=== PATIENT | male | born 1945 | race Caucasian/White ===

== ENCOUNTER 2016-06-25 18:10 | Emergency (ER) | payer OTHER, MEDICARE ==
[~2016-06-25] VITALS: Ht 180.3 cm; Wt 72.6 kg
[~2016-06-25 18:10] MED LIST: NOHOMEMEDICATIONS
[2016-06-25 19:11] LABS: HEMOGLOBIN 13.1 gm/dL (14.0-18.0); MCH 30.4 pg (26.0-34.0); MCHC 34.5 g/dL (28.0-37.0); MCV 88.1 fL (80.0-100.0); PLATELET COUNT 158 thou/uL (150-400); RBC 4.31 mil/uL (4.50-6.00); WBC 5.8 thou/uL (4.0-11.0)
[2016-06-25 19:14] LABS: MANUAL DIFF YES
[2016-06-25 19:20] LABS: CALCIUM 8.4 mg/dL (8.5-10.1); CREATININE 0.9 mg/dL (0.6-1.3); POTASSIUM 3.2 mmol/L (3.5-5.1)
[2016-06-25 19:25] LABS: TOTAL BILIRUBIN 0.9 mg/dL (<0.1-1.0); TOTAL PROTEIN 6.4 g/dL (6.4-8.2)
[2016-06-25 20:58] LABS: ABSOLUTE NEUTROPHILS 4.6 thou/uL (1.4-8.2); ATYPICAL LYMPHS 1 %; TOTAL CELL COUNT 100
[2016-06-25 20:59] LABS: ANISOCYTOSIS 1+
[2016-06-25] MEDS ORDERED: BENTYL 20 MG TA20 M1 PO (21:00)
[2016-06-25] MEDS ORDERED: ONDANSETRON HCL4 M2 PO (21:00)
[2016-06-25 21:13] VITALS: BP 160/91
== END 2016-06-25 21:13 | disposition home or self-care (01) ==
LOC: ER 18:10
PROVIDERS: Emergency Medicine
DX: R19.7 Diarrhea, unspecified (principal)

== ENCOUNTER → 2016-07-10 | Outpatient (CLI) | payer OTHER, MEDICARE ==
[~2016-07-10] VITALS: Ht 172.7 cm; Wt 74.8 kg
[~2016-07-10] MED LIST changes: +BENTYL 20 MG TA20 M1 PO; +CENTRUM SILVER1 EAC2 PO; +FISH OIL 1,001000 M2 PO; +ONDANSETRON HCL4 M2 PO; +PANTOPRAZOLE SO40 M1 PO
--- NOTE | ~2016-07-10 | P ---
[facility] [place] [address] PROCEDURE REPORT Name: LESLIREYNALDO Barry Room #: [facility] [id number] Admission: 07/10/16 Attend Phys: Barry Royal MD Discharge: Date of : 43 Report #: [id number] THIS REPORT FOR: //name// CC: BARRY Royal BRIEF HISTORY: The patient is a 70-year-old male who recently underwent GI evaluation for anemia. He was found to have a long segment of Stubbs mucosa. Dysplasia was not described in the biopsies. His segment of Stubbs was measured at 9 cm. He has been on proton pump inhibitor and he reports he has no indigestion symptoms at this time. He presents for surveillance biopsies of his Stubbs's and confirmatory biopsies after initial diagnosis. PREOPERATIVE DIAGNOSIS: Long segment Stubbs esophagus. POSTOPERATIVE DIAGNOSES: 1. Long segment Stubbs esophagus. 2. Large hiatus hernia. MEDICATIONS: Deep sedation per anesthesia. SPECIMEN: Multiple biopsies of Stubbs mucosa at 36, 34, 32, 30 and 28 cm. ESTIMATED BLOOD LOSS: 3 mL. PROCEDURE: EGD with biopsy. FINDINGS: Prior to propofol sedation, the procedure of upper endoscopy was reviewed with the patient as well as potential risks, benefits and complications. He indicates he understands and desires to proceed. DESCRIPTION OF PROCEDURE: With the patient in the left lateral decubitus position, the Fuji and endoscope was inserted in the cervical esophagus under direct vision without difficulty. Examination of this organ through its entire length revealed normal esophageal mucosa in the very proximal esophagus. However, the scope was advanced. The squamocolumnar junction was identified at 26 cm. It was irregular in its course, but there is no evidence of peptic esophagitis, strictures or masses. Distal to this line was typical appearing bland and flat Stubbs mucosa. No ulcers, erosions, strictures, or masses were raised lesions were seen. An occasional tiny squamous island was seen in the Stubbs's. The scope was further advanced into the moderately large hiatus hernia. The mucosa in the hernia was within normal limits. Scope was advanced in the stomach, which was examined on end view as well as retroflexed views. The mucosa was intact. No ulcers or erosions were seen. Upon retroflexion, the hiatus hernia was seen. The pylorus was normal. Duodenal bulb and postbulbar sweep were inspected and noted to be unremarkable. At that point, the scope was [facility] [address] [place] [address] PROCEDURE REPORT Name: REYNALDO BALLESTEROS Room #: REG [facility] [id number] Admission: 07/10/16 Attend Phys: Barry Royal MD Discharge: Date of : 43 Report #: [id number] slowly withdrawn and careful circumferential views obtained. Multiple random biopsies obtained of Stubbs mucosa at the levels as noted above. He tolerated the procedure well. CONDITION OF THE PATIENT UPON DISCHARGE: Following procedure, the patient drowsy, aroused, conversant and will be discharged home when fully ambulatory. INSTRUCTIONS TO THE PATIENT AND FAMILY AT THE TIME OF DISCHARGE: Long segment Stubbs esophagus. The mucosa is homogeneous, flat and without ulcers or raised lesions. We will follow up on biopsies and make further recommendations. He is to continue PPI on long-term basis. Certainly, if he does have dysplasia, we would consider radiofrequency ablation with longstanding of Stubbs mucosa. If he does not have dysplasia, we can have a discussion with the patient regarding long-term management. Ablation may be a consideration to a long segment; however, benefits were not as clear for a 70-year-old male for ablation. Again, we will make further recommendations after review of biopsies. <ELECTRONICALLY SIGNED> By: Barry Royal MD 07/11/16 1809 [id number] [id number] Barry Royal MD /nt
--- NOTE | ~2016-07-10 | S ---
[facility] [address] [place] [address] SURGICAL PATH RPT PROCEDURE Name: REYNALDO BALLESTEROS Room #: REG ABRAHAM Pearson#: [id number] Admission: 07/10/16 Date of : 43 Discharge: Report #: [id number] Path Case #: [id number] PATHOLOGY REPORT DRAFT COLLECTION DATE: 07/10/2016 RECEIVED DATE: 07/11/2016 SPECIMEN(S) RECEIVED: A.Biopsy esophagus 36 cm B.Biopsy esophagus 34 cm C.Biopsy esophagus 32 cm D.Biopsy esophagus 30 cm E.Biopsy esophagus 28 cm
== END ==
LOC: GI 08:56
DX: K22.70 Barrett's esophagus without dysplasia (principal); K44.9 Diaphragmatic hernia without obstruction or gangrene; K21.9 Gastro-esophageal reflux disease without esophagitis
CPT/HCPCS: 62110; 62900

== ENCOUNTER → 2019-10-14 | Outpatient (CLI) | payer OTHER, MEDICARE ==
[~2019-10-14] VITALS: Ht 172.7 cm; Wt 79.4 kg
[~2019-10-14] MED LIST changes: +COZAAR 50 MG TA50 M1 PO; +OSTEO BI-FLEX1 EAC1 PO; +TOPROL XL100 MG PO
--- NOTE | 2019-10-14 13:37 | P ---
[facility] [place] [address] PROCEDURE REPORT Name: REYNALDO BALLESTEROS Room #: REG Lien AlexManoloLesiaManolo#: [id number] Admission: 10/14/19 Attend Phys: Adán Royal MD Discharge: Date of : 43 Report #: [id number] THIS REPORT FOR: cc: Adán Johnson MD, John M. MD Thesing,Adán Leon MD ~ CC: Adán Royal BRIEF HISTORY: The patient is a 73-year-old male with a known long segment Stubbs mucosa, who has previously not had dysplasia, for surveillance examination. His reflux symptoms are well controlled with omeprazole 40 mg daily. PREOPERATIVE DIAGNOSIS: Long segment Stubbs esophagus. POSTOPERATIVE DIAGNOSES: 1. Stubbs esophagus. 2. A 5 cm sliding type hiatus hernia. 3. Pedunculated polyp prepyloric antrum. MEDICATIONS: Deep sedation with propofol per Anesthesia. SPECIMENS: 1. Antral polyp. 2. Random biopsies of Stubbs esophagus, 35 cm. 3. Random biopsies of Stubbs esophagus, 33 cm. 4. Random biopsies of Stubbs esophagus, 29 cm. 5. Random biopsies of Stubbs esophagus, 27 cm. ESTIMATED BLOOD LOSS: 5 mL. PROCEDURE: EGD with snare polypectomy and biopsy. FINDINGS: Prior to propofol sedation, procedure of upper endoscopy and biopsy was discussed with the patient as well as potential risks and its complications. He indicates he understands and desires that we proceed. DESCRIPTION OF PROCEDURE: With the patient in left lateral decubitus position, the Olympus video endoscope was inserted in the cervical esophagus under direct vision without difficulty. Examination of this organ through its entire length revealed normal appearing esophageal mucosa down to about 25 cm. At that point, the squamocolumnar junction was seen. It was unremarkable. No evidence of ulcers, erosions, strictures or mass lesions. The scope was advanced and he had a long segment of circumferential Stubbs mucosa down to the top of the gastric folds, which was at about 35 cm. The long segment Stubbs mucosa examined with [facility] [address] [place] [address] PROCEDURE REPORT Name: REYNALDO BALLESTEROS Room #: REG [facility]#: [id number] Admission: 10/14/19 Attend Phys: Adán Royal MD Discharge: Date of : 43 Report #: [id number] white light as well as narrow banding imaging. No ulcers, erosions, strictures or raised lesions or flat lesions were seen. The mucosa was intact and otherwise unremarkable and without suspicious lesions. Multiple random biopsies were obtained. The scope was advanced and he had a 5 cm sliding type hiatus hernia from 35 cm down to 40 cm. The mucosa and hernia was unremarkable. The scope was advanced in the stomach, was examined on end view as well as retroflexed views. The gastric mucosa was normal with the exception of a 6 mm pedunculated polyp in the prepyloric antrum. This was removed by cold snare polypectomy and the polyp was recovered. Tiny fragments remain and these were cleaned up with biopsy forceps. There was good hemostasis. Upon retroflexion, the hiatus hernia was seen, but no other abnormalities were identified. The pylorus, duodenal bulb and postbulbar duodenal sweep were inspected and noted to be unremarkable. At that point, the scope was slowly withdrawn and careful circumferential views confirmed the above findings. The patient tolerated the procedure well. CONDITION OF THE PATIENT UPON DISCHARGE: Following the procedure, the patient was drowsy, arousable and conversant, and will be discharged to home when fully ambulatory. INSTRUCTIONS TO THE PATIENT AND FAMILY AT THE TIME OF DISCHARGE: We will follow up on the pathology. If there is evidence of dysplasia, he may require further intervention. If no dysplasia is present, he should return in 3 years for followup endoscopy. We will also follow up on the pathology of the polyp and make further recommendations as needed. He has done well with pantoprazole and there was no evidence of esophagitis. He should continue his pantoprazole daily. He reports he is doing well without symptoms at this time. He will otherwise follow up with Dr. Adán Johnson. <ELECTRONICALLY SIGNED> By: Adán Royal MD 10/14/19 1337 [id number] [id number] Adán Royal MD /nt
--- NOTE | 2019-10-18 11:10 | PATH ---
[facility] [place] [address] PATHOLOGY RPT PROCEDURE Name: ROBERT GALLEGO Room #: REG ABRAHAM Acevedo.#: [id number] Admission: 10/14/19 Date of : 43 Discharge: Report #: [id number] Path Case #: [id number] [facility] Accession Number: [id number] . 01 Material submitted: . PART A: stomach - POLYP AT ANTRUM PART B: esophagus - BIOPSY OF BARRETTS AT 35CM, HX OF BARRETTS PART C: esophagus - BIOPSY OF BARRETTS AT 33CM, HX OF BARRETTS PART D: esophagus - BIOPSY OF BARRETTS AT 29CM, HX OF BARRETTS PART E: esophagus - BIOPSY OF BARRETTS AT 27CM, HX OF BARRETTS . 01 Clinical history: . Stubbs's . 02 Diagnosis: A. Polyp, antrum, endoscopic biopsy: - Hyperplastic polyp. - Negative for intestinal metaplasia or dysplasia. . B. Gastric cardia-type mucosa, Stubbs's at 35 cm HX of Stubbs's, endoscopic biopsy: - Specialized columnar epithelium consistent with Stubbs's metaplasia. - Negative for dysplasia. . C. Gastric cardia-type mucosa, Stubbs's at 33 cm HX of Stubbs's, endoscopic biopsy: - Specialized columnar epithelium consistent with Stubbs's metaplasia. - Negative for dysplasia. . D. Gastroesophageal mucosa, Stubbs's at 29 cm HX of Stubbs's, endoscopic biopsy: - Specialized columnar epithelium (gastric cardia-type mucosa) with intestinal metaplasia, consistent with Stubbs's metaplasia. - Negative for dysplasia. - Mild acute and chronic inflammation scattered foci. - Squamous mucosa with mild esophagitis. . E. Gastric cardia-type mucosa, Stubbs's at 27 cm HX of Stubbs's, endoscopic biopsy: - Specialized columnar epithelium with intestinal metaplasia, consistent with Stubbs's metaplasia. - Negative for dysplasia. - Mild acute and chronic inflammation present within the background. (IUV:funmilayo; 10/17/2019) QMS 10/17/2019 1440 Local . 02 Comment: [address] [address] PATHOLOGY RPT PROCEDURE Name: ROBERT GALLEGO Room #: REG ABRAHAM Pearson#: [id number] Admission: 10/14/19 Date of : 43 Discharge: Report #: [id number] Path Case #: [id number] Dr. Raymundo Perez has seen parts B, C, D, and E, and concurs with my interpretation. (IUV:funmilayo; 10/17/2019) . 02 Electronically signed: . Beronica Caruso MD, Pathologist NPI- [id number] . 01 Gross description: . A. The specimen is received in formalin, labeled "Robert Gallego, polyp at antrum". Received are four segments of pale ope soft tissue ranging in size from 0.2 to 0.7 cm in maximum dimensions. The specimen is submitted entirely in cassette A1. . B. The specimen is received in formalin, labeled "Robert Gallego, biopsy of Stubbs's at 35 cm". Received are four segments of pale poe soft tissue ranging in size from 0.3 to 0.4 cm in maximum dimensions. The specimen is submitted entirely in cassette B1. . C. The specimen is received in formalin, labeled "Robert Gallego, biopsy of Stubbs's at 33 cm". Received are six segments of pale poe soft tissue ranging in size from 0.3 to 0.5 cm in maximum dimensions. The specimen is submitted entirely in cassette C1. . D. The specimen is received in formalin, labeled "Robert Gallego, biopsy of Stubbs's at 29 cm". Received are 10 segments of pale poe soft tissue ranging in size from 0.2 to 0.4 cm in maximum dimensions. The specimen is submitted entirely in cassette D1. . E. The specimen is received in formalin, labeled "Robert Gallego, biopsy of Stubbs's at 27 cm". Received are 10 segments of pale poe soft tissue ranging in size from 0.2 to 0.4 cm in maximum dimensions. The specimen is submitted entirely in cassette E1. (CAA; 10/14/2019) QA/QA 10/17/2019 1433 Local . 02 Pathologist provided ICD-10: K31.7, K20.9, K22.70 . 02 CPT . 022132, [id number], 116513, [id number], [id number] Specimen Comment: A courtesy copy of this report has been sent to [phone] Specimen Comment: Report sent to Performed at: [address], [place], [place] [id number] MD Willam Ledbetter MD Phone: [phone] Performed at: 02 [facility] [address] [place] [address] PATHOLOGY RPT PROCEDURE Name: ROBERT GALLEGO Room #: REG ABRAHAM Pearson#: [id number] Admission: 10/14/19 Date of : 43 Discharge: Report #: [id number] Path Case #: [id number] [facility] [place] [address] [facility] [facility] [address], [place] [id number] MD Beronica Caruso MD Phone: [phone]
== END | disposition home or self-care (01) ==
LOC: GI 09:06
PROVIDERS: ATTEND Specialist
DX: K22.70 Barrett's esophagus without dysplasia (principal); K31.7 Polyp of stomach and duodenum; K21.0 Gastro-esophageal reflux disease with esophagitis; K44.9 Diaphragmatic hernia without obstruction or gangrene; I10 Essential (primary) hypertension; Z11.59 Encounter for screening for other viral diseases; Z98.890 Other specified postprocedural states; Z79.899 Other long term (current) drug therapy
CPT/HCPCS: 62110; 62900